=== PATIENT | male | born 1955 | race Caucasian/White ===

== ENCOUNTER → 2017-12-03 | Day surgery (SDC) | payer BC ==
[~2017-12-03] MED LIST: ALTACE PO; ASPIRIN81 MG PO; B 12; B 12 PO; DILTIAZEM ER300 M1 PO; FENTANYL CITRATE/PF 100MCG/2 ML INJ ONE; FISH OIL; FISH OIL 1,0001 EAC2 PO; FISH OIL PO; GLIPIZIDE ER2.5 M1 PO; HCTZ PO; INVOKANA PO; LANTUS100 UNITS/ SC; LIDOCAINE HCL 2% LOCAL INJ 5 ML SDV VIAL INJ ONE; MIDAZOLAM HCL 2 MG/2 ML VIAL ONE; MULTIVITAMIN PO; PROPOFOL IV EMULSION 10 MG/ML 50 ML VIAL ONE; TRESIBA SC; VICTOZA; VIT D; VITAMIN B12 PO; Z NIACIN PO; Z.0.ACTOS15 MG PO; Z.0.CRESTOR5 MG PO; Z.0.GLUCOPHAGE500 MG PO; Z.0.NIASPAN500 MG PO; Z.0.PLAVIX75 MG PO; Z.0.RAMIPRIL10 MG PO; Z.0.TRICOR48 MG PO; bp meds
--- NOTE | 2017-12-03 16:23 | Operative Report ---
DATE OF PROCEDURE: December 03, 2017 REFERRING PHYSICIAN: Dr. Mitch Kelly PROCEDURE PERFORMED: Colonoscopy and polypectomy. INDICATIONS FOR COLONOSCOPY: Colorectal cancer screening. MEDICATION: Patient was done under MAC. Please see anesthesiologist's note. PROCEDURE: With the patient in the left lateral decubitus position, the flexible fiberoptic Olympus colonoscope was inserted into the rectum with ease and advanced all the way to the cecum. The mucosa overlying the cecum appeared to be within normal limits. One polyp was hot biopsied from the ascending colon. Diverticulosis was noted throughout the colon. The transverse, descending and sigmoid, other than for diverticular disease, appeared to be within normal limits. One polyp was hot biopsied from the rectum. The scope was then retroflexed into the distal rectum, and small internal hemorrhoids were noted, none of which was actively bleeding. The scope was then straightened out. It was withdrawn. Patient tolerated the procedure well. IMPRESSION 1. Pandiverticulosis. 2. Ascending colon polyp, hot biopsied. 3. Rectal polyp, hot biopsied. 4. Internal hemorrhoids, none actively bleeding. PLAN: Follow up histology. Initiate high-fiber, low-fat diet. Initiate high-fiber supplement. Patient will need a followup colonoscopy in 3 years. Job#: [id number] cc:MITCH KELLY MD
== END | disposition home or self-care (01) ==
LOC: OR 08:40
PROVIDERS: ATTEND Internal Medicine Gastroenterology
DX: Z12.11 Encounter for screening for malignant neoplasm of colon (principal); K63.5 Polyp of colon; K62.1 Rectal polyp; K57.30 Diverticulosis of large intestine without perforation or abscess without bleeding; K64.8 Other hemorrhoids; E11.9 Type 2 diabetes mellitus without complications; I45.10 Unspecified right bundle-branch block; N20.0 Calculus of kidney; Z79.02 Long term (current) use of antithrombotics/antiplatelets; Z86.73 Personal history of transient ischemic attack (TIA), and cerebral infarction without residual deficits
CPT/HCPCS: 36415; 45384; 82948; J2001; J2250

== ENCOUNTER → 2022-09-26 | Outpatient (CLI) | payer MEDICARE, OTHER ==
[~2022-09-26] MED LIST changes: -FENTANYL CITRATE/PF 100MCG/2 ML INJ ONE; -LIDOCAINE HCL 2% LOCAL INJ 5 ML SDV VIAL INJ ONE; -MIDAZOLAM HCL 2 MG/2 ML VIAL ONE; -PROPOFOL IV EMULSION 10 MG/ML 50 ML VIAL ONE
== END ==
LOC: US 08:56
PROVIDERS: ATTEND Internal Medicine Gastroenterology
DX: R10.10 Upper abdominal pain, unspecified (principal)
CPT/HCPCS: 76700

== ENCOUNTER 2023-05-11 07:19 | Emergency (ER) | payer MEDICARE, OTHER ==
[~2023-05-11] VITALS: Ht 182.9 cm; Wt 113.4 kg
[~2023-05-11 07:19] MED LIST changes: +ATORVASTATIN CA20 MG PO; +B12; +CIPRO500 MG PO; +CLOPIDOGREL75 MG PO; +D3; +DILTIAZEM ER300 MG; +FLOMAX0.4 MG PO; +HUMULOG; +JARDIANCE25 MG PO; +LANTUS 3ML100 UNITS/; +METFORMIN HCL500 MG PO; +METRONIDAZOLE500 MG PO; +MULTIVITAMIN; +OCUVITE LUTEIN1 EACH PO; +RAMIPRIL5 MG PO; +TRICOR145 MG PO; +VASCEPA0.5 GM
[2023-05-11] MEDS ORDERED: KETOROLAC TROMETHAMINE 30 MG/ML VIAL IV STA (07:54)
[2023-05-11 08:28] LABS: BASOPHILS % 0.7 % (0.0-1.0); EOSINOPHILS # (AUTO) 0.2 (0.0-0.4); EOSINOPHILS % 4.4 % (0.0-6.0); HEMATOCRIT 40.2 % (38.2-49.6); HEMOGLOBIN 13.8 g/dL (14.0-18.0); LYMPHOCYTES # (AUTO) 1.4 (1.0-3.2); LYMPHOCYTES % 25.4 % (18.0-39.1); MEAN CORPUSCULAR HEMOGLOBIN 29.9 pg (28-32); MEAN CORPUSCULAR HGB CONC 34.3 g/dL (31-35); MEAN CORPUSCULAR VOLUME 87.2 fL (81-99); MONOCYTES # (AUTO) 0.6 (0.2-0.8); MONOCYTES % 11.2 % (4.4-11.3); NEUTROPHILS # (AUTO) 3.2 (2.1-6.9); NEUTROPHILS % 57.8 % (38.7-80.0); PLATELET COUNT 251 x10e3/uL (140-360); RED BLOOD COUNT 4.61 x10e6/uL (4.3-5.7); RED CELL DISTRIBUTION WIDTH 12.9 % (11.7-14.4)
[2023-05-11 08:36] LABS: CLARITY,URINE CLEAR (CLEAR); COLOR,URINE YELLOW (YELLOW); KETONES,URINE NEGATIVE (NEGATIVE); LEUKOCYTE ESTERASE ,URINE NEGATIVE (NEGATIVE); NITRITE,URINE NEGATIVE (NEGATIVE); PROTEIN,URINE DIPSTICK NEGATIVE (NEGATIVE); URINE UROBILINOGEN 0.2 mg/dL (0.2 - 1)
[2023-05-11 08:40] LABS: RBC,URINE 0-5 /HPF (0-5); WBC,URINE (MAN) 0-5 /HPF (0-5)
[2023-05-11 08:47] LABS: ALBUMIN 3.6 g/dL (3.5-5.0); ALBUMIN/GLOBULIN RATIO 1.3 (0.8-2.0); ANION GAP 15.1 mmol/L (8-16); CALCIUM 9.1 mg/dL (8.4-10.2); CREATININE, SERUM 1.05 mg/dL (0.72-1.25); POTASSIUM 4.1 mmol/L (3.5-5.1)
[2023-05-11] MEDS ORDERED: NAPROXEN250 MG PO (09:16)
[2023-05-11 09:30] VITALS: O2SAT 100
== END 2023-05-11 09:40 | disposition home or self-care (01) ==
LOC: MERGE 07:22 → ER 07:22
DX: R10.32 Left lower quadrant pain (principal); M54.50 Low back pain, unspecified; N20.0 Calculus of kidney; K76.0 Fatty (change of) liver, not elsewhere classified; K57.90 Diverticulosis of intestine, part unspecified, without perforation or abscess without bleeding; E11.65 Type 2 diabetes mellitus with hyperglycemia; I10 Essential (primary) hypertension; Z86.73 Personal history of transient ischemic attack (TIA), and cerebral infarction without residual deficits
CPT/HCPCS: 36415; 74176; 80053; 81001; 85025; 99284; J1885